=== PATIENT | female | born 1990 | race Caucasian/White ===

== ENCOUNTER 2017-12-08 15:38 | Emergency (ER) | payer BC, SELFPAY ==
[2017-12-08 15:40] VITALS: BP 149/100; PULSE 90; RESP 18; TEMP 36.6; O2SAT 98; BMI 47.9
[2017-12-08] MEDS: Metoclopramide 10 MG/2 ML Vial IM (15:57)
--- NOTE | 2017-12-08 17:20 | ED.DCSUM_ITS ---
- ER Visit Summary Date of Service: 12/08/17 Chief Complaint: Nausea vomiting History of Present Illness: The patient is a 27 F presenting secondary to nausea vomiting. Patient reports that she drank heavily last night, and she has been unable to keep down any fluids today. She denies any blood in her emesis. She denies any other symptoms. Physical Examination: Vital signs are within normal limits, patient is afebrile. General: Patient is well-nourished well-developed and in no acute distress. Head: Normocephalic, atraumatic Eyes: Pupils equal round and reactive bilaterally, extra occular motion intact bialterally ENT: Moist mucous membranes Neck: Supple, no lymphadenopathy, no JVD, no meningismus CVS: Heart regular rate and rhythm, no murmurs, rubs or gallops, radial pulses 2 + bilaterally Resp: Respirations nondistressed, lung sounds clear bilaterally Abdomen: Soft, nontender, nondistended, no palpable masses, normal bowel sounds Back: Nontender Extremities: Nontender, atraumatic, active full range of motion, no peripheral edema Skin: warm, no rashes, no petechia Neuro: Alert and oriented x 4, CN 2-12 intact, no lateralizing neurological defecits Psyc: Normal affect Test Results: None indicated Emergency Department Course and Treatment: Patient presented secondary to vomiting after alcohol ingestion. She appears well-hydrated has normal vital signs. She was treated with IM Reglan, passed p.o. challenge. Patient was discharged. Disposition: Discharge Impression: 1. Nausea and vomiting This note was generated with [employer] dictation software. It may contain incorrect words, spelling, and punctuation that were not noted in review of the chart prior to signing ED Disposition - Plan for ED Patient: Chief Complaint: Nausea/Vomiting Diagnosis: Hangover Instructions: ED Gastritis Referrals: [facility] Doctor,Out of [Primary Care Provider] -
[2017-12-08 17:41] VITALS: BP 141/90; PULSE 84; RESP 16; O2SAT 98
--- NOTE | 2017-12-08 17:42 | ED.RN ---
THIS NURSE REVIEWED D/C INSTRUCTIONS WITH PT. PT VERBALIZED UNDERSTANDING OF INSTRUCTIONS. PT DENIES FURTHER NEEDS OR QUESTIONS AT THIS TIME. PT AMBULATES FROM ROOM ON OWN WITHOUT ASSISTANCE FROM STAFF
== END 2017-12-08 17:42 | disposition home or self-care (01) ==
PROVIDERS: Emergency Provider Emergency Medicine
DX: R11.2 Nausea with vomiting, unspecified (principal); E66.9 Obesity, unspecified
CPT/HCPCS: 96372; 99282

== ENCOUNTER → 2017-12-28 07:04 | Outpatient (CLI) | payer BC, SELFPAY ==
[2017-12-28 10:25] LABS: Glucose 101 mg/dL (74-106)
[2017-12-28 12:45] LABS: Insulin 29.3 mU/L (2.6-37.6)
== END ==
DX: E28.2 Polycystic ovarian syndrome (principal)
CPT/HCPCS: 36415; 82947; 83525; 84443

== ENCOUNTER → 2020-09-03 09:56 | Outpatient (CLI) | payer BC, SELFPAY ==
[2020-09-03 13:01] LABS: Thyroid Stim Hormone (TSH) 3.93 uIU/mL (0.358-3.74)
== END ==
PROVIDERS: Referring Provider Obstetrics & Gynecology Reproductive Endocrinology; Visit Provider Obstetrics & Gynecology Reproductive Endocrinology
DX: E03.9 Hypothyroidism, unspecified (principal)
CPT/HCPCS: 36415; 84443

== ENCOUNTER 2021-12-02 09:37 | Outpatient (CLI) | payer BC, SELFPAY ==
[2021-12-02 11:06] LABS: Hemoglobin A1c 5.8 % (3.8-5.6)
[2021-12-02 11:09] LABS: Prolactin 4.8 ng/mL; Thyroid Stim Hormone (TSH) 0.25 uIU/mL (0.358-3.74)
[2021-12-02 12:45] LABS: hCG Titer Quant., Serum < 1 mIU/mL (1-3)
[2021-12-07 18:01] LABS: HPV APTIMA, High Risk Negative (Negative)
[2021-12-07 18:07] LABS: Testosterone, % Free 1.25 % (0.50-2.80); Testosterone, Free 0.36 ng/dL (0.10-0.85); Testosterone, Total 29 ng/dL (13-71)
[2021-12-08 14:04] LABS: Anti-Mullerian Hormone,Serum 1.42 ng/mL (.)
[2021-12-10 16:03] LABS: 17-Hydroxyprogesterone 578 ng/dL (.)
== END 2021-12-02 23:59 | disposition home or self-care (01) ==
LOC: WOBLAB 09:40
PROVIDERS: Visit Provider Obstetrics & Gynecology
DX: Z51.81 Encounter for therapeutic drug level monitoring (principal); N92.5 Other specified irregular menstruation; Z12.4 Encounter for screening for malignant neoplasm of cervix
CPT/HCPCS: 36415; 82627; 83036; 83498; 83516; 84146; 84402; 84403; 84443; 84702; 87624; 88175; 82626; G0145

== ENCOUNTER → 2024-11-03 | Outpatient (CLI) | payer BC, SELFPAY ==
--- NOTE | 2024-11-03 08:54 | ECHOD_ITS ---
Reason For Study Reason For Study: TACHYCARDIA Procedure This was a 2D Doppler, Color Flow transthoracic echocardiogram. Exam performed in department. Left Ventricle Normal size and thickness. The LV systolic function is normal. EF is 65 %. Normal diastololic function. Right Ventricle Normal right ventricle. Atria The left and right atria are normal. Mitral Valve Trivial to mild mitral valve regurgitation. Tricuspid Valve Trivial tricuspid valve insufficiency. Normal pulmonary artery pressure. Aortic Valve Trisinus/trileaflet aortic valve. Pulmonic Valve The pulmonic valve is not well visualized. Trivial pulmonic valve insufficiency. Great Vessels Normal sized aortic root. Pericardium/Pleural No pericardial effusion. MMode/2D Measurements & Calculations LVIDd: 4.5 cm IVSd: 1.00 cm Ao root diam: 2.9 cm LVIDs: 3.1 cm LVPWd: 1.0 cm RVDd: 3.4 cm FS: 31.5 % LAV(MOD-bp): 42.5 ml LVAd ap4: 30.2 cm2 SV(MOD-sp4): 57.2 ml LAV(MOD-bp) Indexed: 18.4 ml/m2 LVLd ap4: 8.3 cm SI(MOD-sp4): 24.8 ml/m2 LAV(MOD-sp2): 37.5 ml EDV(MOD-sp4): 90.3 ml LAV(MOD-sp4): 41.4 ml EDV(sp4-el): 93.0 ml LVAs ap4: 15.9 cm2 LVLs ap4: 6.5 cm ESV(MOD-sp4): 33.1 ml ESV(sp4-el): 32.9 ml EF(MOD-sp4): 63.3 % EF(sp4-el): 64.6 % SV(sp4-el): 60.0 ml LA A4 area: 16.6 cm2 LA dimension(2D): 3.2 cm RA A4 area: 14.8 cm2 TAPSE: 1.8 cm Time Measurements MV dec time: 0.24 sec Doppler Measurements & Calculations MV E max gentry: 120.6 cm/sec Lat Peak E' Gentry: 17.5 cm/sec Med Peak E' Gentry: 13.2 cm/sec MV A max gentry: 68.1 cm/sec E/E' lat: 6.9 E/E' med: 9.1 MV E/A: 1.8 Ao V2 max: 140.1 cm/sec LV V1 max: 131.0 cm/sec PA V2 max: 105.5 cm/sec Ao max P.8 mmHg LV V1 max P.9 mmHg TR max gentry: 230.4 cm/sec TR max P.2 mmHg ECHO/Echo Complete Interpretation Summary The LV systolic function is normal. EF is 65 %. Trivial to mild mitral valve regurgitation. Ordering Physician: Leonie Calderón Referring Physician: Leonie Calderón Performed By: Kayla Cameron RDCS
== END | disposition home or self-care (01) ==
PROVIDERS: PCP Internal Medicine; Referring Provider Internal Medicine; Visit Provider Internal Medicine
DX: R00.0 Tachycardia, unspecified (principal)
CPT/HCPCS: 93306

== ENCOUNTER 2024-11-28 08:26 | Outpatient (CLI) | payer BC, SELFPAY ==
[2024-11-28] MEDS: Cosyntropin 0.25 MG Vial IM (08:49)
[2024-11-28 08:51] VITALS: BP 137/74; PULSE 70; RESP 16; TEMP 35.6; O2SAT 99
[2024-11-28 09:53] VITALS: BP 126/85; PULSE 64; RESP 16; O2SAT 100
[2024-11-28 09:55] LABS: Follicle Stimulating Hormone 10.5 mIU/mL; Luteinizing Hormone 13.1 mIU/mL
[2024-11-29 04:07] LABS: PROGESTERONE 0.2 ng/mL (.)
[2024-12-02 14:08] LABS: Testosterone, % Free 2.58 % (0.50-2.80); Testosterone, Free 0.77 ng/dL (0.10-0.85); Testosterone, Total 30 ng/dL (8-60)
== END 2024-11-28 23:59 | disposition home or self-care (01) ==
LOC: MEDOUTP 08:27
PROVIDERS: PCP Internal Medicine; Referring Provider Internal Medicine; Visit Provider Internal Medicine
DX: R79.89 Other specified abnormal findings of blood chemistry (principal); R53.83 Other fatigue; E28.2 Polycystic ovarian syndrome
CPT/HCPCS: 36415; 82533; 82670; 83001; 83002; 84144; 84402; 84403; 96372; J0834

== ENCOUNTER → 2025-03-20 | Outpatient (CLI) | payer BC, SELFPAY ==
[2025-03-20 10:55] LABS: Hematocrit 39.6 % (37-47); Hemoglobin 13.6 g/dL (12.0-15.0); Mean Corp Hgb Conc 34.3 g/dL (32-36); Mean Corpuscular Volume 85.9 fL (81-99); Mean Platelet Vol. 9.4 fl (6.2-12.0); Platelet Count 434 K/mm3 (150-450); RBC Distribution Width CV 13.2 % (11.6-14.6); RBC Distribution Width SD 40.8 fl (35.1-43.9); Red Blood Count 4.61 M/mm3 (4.2-5.4); White Blood Count 9.5 K/mm3 (4.4-11.0)
[2025-03-20 11:44] LABS: AST(SGOT) 17 U/L (<=31); Alanine Aminotransfer ALT/SGPT 19 U/L (<=34); Albumin, Serum 3.6 g/dL (3.5-5.0); Alkaline Phosphatase 82 U/L (35-104); Anion Gap 14 (5-15); BUN 12 mg/dL (4-19); BUN/Creat Ratio 17.9 RATIO (10-20); Calcium,Total 8.9 mg/dL (7.6-11.0); Carbon Dioxide 21.6 mmol/L (21.0-32.0); Chloride 101 mmol/L (98-108); Follicle Stimulating Hormone 5.1 mIU/mL; Globulin 4.2 g/dL (2.2-4.2); Glucose 63 mg/dL (70-99); Potassium 3.9 mmol/L (3.3-5.1); T3 Total - Triiodothyronine 1.19 ng/mL (0.80-2.00); T4 Total, Thyroxin 13.0 ug/dL (4.8-13.9)
[2025-03-24 15:08] LABS: PROGESTERONE 6.6 ng/mL (.)
[2025-03-25 09:09] LABS: PROLACTIN 7.3 ng/mL (4.8-33.4); T3UP 27 % (24-39); Testosterone, % Free 1.10 % (0.50-2.80); Testosterone, Free 0.36 ng/dL (0.10-0.85)
== END | disposition home or self-care (01) ==
LOC: LAB 09:16
PROVIDERS: PCP Internal Medicine; Referring Provider Obstetrics & Gynecology Reproductive Endocrinology; Visit Provider Obstetrics & Gynecology Reproductive Endocrinology
DX: E88.810 Metabolic syndrome (principal); Z80.3 Family history of malignant neoplasm of breast; Z80.0 Family history of malignant neoplasm of digestive organs
CPT/HCPCS: 36415; 80053; 82627; 83001; 83002; 83498; 83525; 84144; 84146; 84270; 84402; 84403; 84436; 84443; 84479; 84480; 85027; 82626